=== PATIENT | female | born 1945 | race Caucasian/White ===

== ENCOUNTER 2021-05-31 10:01 | Outpatient (CLI) | payer MEDICARE, MEDICAID, SELFPAY ==
--- NOTE | 2021-05-31 10:23 | XR_ITS ---
WS: [id number] LUMBAR SPINE: 3 VIEWS TECHNIQUE: AP, lateral and L5-S1 spot. HISTORY: DJD COMPARISON: None available. Lumbar vertebra are normally aligned. Mild narrowing of the disc spaces and small endplate hypertrophic osteophytes at all levels. Facet kaden int arthritis is most significant at L5-S1. Pedicles are all identified. SI joints are symmetric bilaterally. No soft tissue abnormalities. Scattered calcifications within the aorta. XR/XR lumbar spine 2-3V* [id number] IMPRESSION: 1. No acute lumbar spine fracture. 2. Mild degenerative disc disease and moderate facet arthritis at L5-S1. 3. Mild atherosclerosis aorta.
--- NOTE | 2021-05-31 10:24 | XR_ITS ---
WS: [id number] CERVICAL SPINE 3 VIEWS HISTORY: Cervicalgia COMPARISON: None available. Mild LEFT curvature cervical spine. Mild straightening of the normal lordosis. No fractures are identified. Disc spaces are slightly narrowed from C3-4 through C6-7. Hypertrophic e ndplate osteophytes from C3 to C7. Soft tissues are normal. XR/XR cervical spine 3V* [id number] IMPRESSION: 1. Mild LEFT curvature cervical spine. No fracture. 2. Multilevel spondylosis most significant from C3-4 to C6-7.
--- NOTE | 2021-05-31 10:27 | XR_ITS ---
WS: [id number] PELVIS AND BILATERAL HIPS TECHNIQUE: AP pelvis and AP and lateral hips. HISTORY: HIP PAIN COMPARISON: None available. Pelvis: Very mild narrowing of the hip joints. There is also mild bilateral narrowing of the SI joint s. No bone destruction. Osteitis pubis. Right hip: Mild narrowing of the RIGHT hip joint. No fracture or dislocation. No loose body or osteon ecrosis. Left hip: Mild narrowing LEFT hip joint. No fracture or dislocation. No loose body. No avascular necr osis. XR/XR hip BI m 5V wo/w pel* [id number] IMPRESSION: 1. Mild bilateral hip joint arthritis. 2. Mild SI joint narrowing.
== END 2021-05-31 10:02 | disposition home or self-care (01) ==
PROVIDERS: PCP Family Medicine; Visit Provider Family Medicine
DX: M13.852 Other specified arthritis, left hip (principal); M13.851 Other specified arthritis, right hip; M47.812 Spondylosis without myelopathy or radiculopathy, cervical region; M47.816 Spondylosis without myelopathy or radiculopathy, lumbar region; I70.0 Atherosclerosis of aorta; M47.817 Spondylosis without myelopathy or radiculopathy, lumbosacral region
CPT/HCPCS: 72040; 72100; 73521; 73523

== ENCOUNTER 2021-09-03 09:03 | Outpatient (CLI) | payer MEDICARE, MEDICAID, SELFPAY ==
--- NOTE | 2021-09-03 09:11 | XRR_ITS ---
PROCEDURE INFORMATION: Exam: XR Chest Exam date and time: 09/03/2021 9:11 AM Age: 76 years old Clinical indication: Cough and other: Fatigue; Patient HX: History--cough, chest congestion, extreme fatigue; Additional info: Pneumonia/asthma w/acute exacerbation TECHNIQUE: Imaging protocol: XR of the chest. Views: 2 views. COMPARISON: CR XR cervical spine 3V* [id number] 05/31/2021 10:36 AM FINDINGS: Lungs: See Pleural spaces finding. Pleural spaces: Small calcified granuloma left costophrenic angle Heart/Mediastinum: Unremarkable. No cardiomegaly. Bones/joints: Old rib fracture on the left involving the 6th and 7th ribs XR/XR chest 2V* [id number] IMPRESSION: No acute cardiopulmonary process. Radiation Dose CTDIVOL = (mGy): DLP = (mGy-cm)
== END 2021-09-03 09:04 | disposition home or self-care (01) ==
LOC: RAD 09:06
PROVIDERS: PCP Family Medicine; Visit Provider Family Medicine
DX: J18.9 Pneumonia, unspecified organism (principal); J45.901 Unspecified asthma with (acute) exacerbation
CPT/HCPCS: 71046

== ENCOUNTER 2022-05-23 08:19 | Outpatient (CLI) | payer MEDICARE, MEDICAID, SELFPAY ==
--- NOTE | 2022-05-23 08:26 | MM_ITS ---
WS: [id number] Exam: [place] [id number] Date/Time of Exam: 05/23/2022 9:07 AM Reason For Exam: SCREENING VIEWS: MLO and CC views both breasts. 3D digital tomosynthesis is also included in this exam. Comparison made with prior exam of 09/05/2016,. Findings: There was no sign of mass, architectural distortion or suspicious calcification in either breast. Fa tty MM/[place] [id number] Impression: BI-RADS: 2-Benign FOLLOW-UP: 1 Year Follow-up This mammogram was also analyzed by the Computer Aided Detection System R2 Imag [employer] Super[employer].
== END 2022-05-23 08:20 | disposition home or self-care (01) ==
LOC: RAD 08:22
PROVIDERS: PCP Family Medicine; Visit Provider Family Medicine
DX: Z12.31 Encounter for screening mammogram for malignant neoplasm of breast (principal)
CPT/HCPCS: 77063; 77067

== ENCOUNTER 2022-06-06 13:41 | Outpatient (CLI) | payer MEDICARE, MEDICAID, SELFPAY ==
--- NOTE | 2022-06-06 13:44 | XR_ITS ---
WS: [id number] SCREENING DEXA SCAN [employer] CLINICAL INFORMATION: ASYMTOMATIC MENOPAUSAL STATE COMPARISON: November 06, 2018 FINDINGS: The L1-L4 bone mineral density measures 0.916 g/cm2. This corresponds to a T score score of -2.2 and Z score of -1.4. Left femoral neck bone mineral density measures 0.837 g/cm2. This corresponds to a T score of -1.4 an d Z score of -0.3. Right femoral neck bone mineral density measures 0.763 g/cm2. This corresponds to a T score -1.9of an d Z score of -0.8. Mean femoral neck bone mineral density measures 0.800 g/cm2. This corresponds to a T score of -1.6 an d Z score of -0.5. XR/XR DEXA axial skeleton* [id number] IMPRESSION: Osteopenia lumbar spine. Osteopenia femoral necks. Patient's FRAX calculated 10 year probability for major osteoporotic fracture i s 27.0 % and osteoporotic hip fracture is 9.1%. Bone mineral density in the lumbar spine has decreased -1.6% since 2019. Bone mineral density in the femoral necks has increased +1.8% since 2019.
== END 2022-06-06 13:42 | disposition home or self-care (01) ==
LOC: RAD 13:42
PROVIDERS: PCP Family Medicine; Visit Provider Family Medicine
DX: Z78.0 Asymptomatic menopausal state (principal); M85.80 Other specified disorders of bone density and structure, unspecified site
CPT/HCPCS: 77080

== ENCOUNTER 2022-10-15 09:19 | Outpatient (CLI) | payer MEDICARE, MEDICAID, SELFPAY ==
--- NOTE | 2022-10-15 09:36 | XR_ITS ---
WS: [id number] LUMBAR SPINE: 3 VIEWS TECHNIQUE: AP, lateral and L5-S1 spot. HISTORY: UNSPECIFIED FALL/OSTEOARTHRITIS COMPARISON: 05/31/2021 Posterior lumbar vertebral bodies are normally aligned. No acute lumbar spine fractures are identifie d. Mild osteophytic ridging along the vertebral endplates and facet joint arthritis. There is mild an terior wedging and loss of height at T12. This does appear new since the prior study. Lumbar pedicles are all identified. Transverse processes are obscured by osteopenia and GI contents. Sclerosis and partial fusion and narrowing of the SI joints. XR/XR lumbar spine 2-3V* [id number] IMPRESSION: 1. No identifiable lumbar spine fracture. 2. Osteopenia. 3. Highly suspicious for mild compression deformity at T12. If pain continues consider CT evaluation.
== END 2022-10-15 09:20 | disposition home or self-care (01) ==
PROVIDERS: PCP Family Medicine; Visit Provider Family Medicine
DX: M19.90 Unspecified osteoarthritis, unspecified site (principal); W19.XXXA Unspecified fall, initial encounter; M85.88 Other specified disorders of bone density and structure, other site
CPT/HCPCS: 72100

== ENCOUNTER 2023-05-29 07:53 | Outpatient (CLI) | payer MEDICARE, MEDICAID, SELFPAY ==
--- NOTE | 2023-05-29 08:22 | MM_ITS ---
WS: [id number] Bilateral screening 3D tomosynthesis digital mammogram, 05/29/2023 Clinical Data: SCREENING Comparison: 05/23/2022, 09/05/2016. Findings: The breast parenchymal pattern shows fibroglandular tissue. No spiculated masses or clustered calcifi cations are seen. There are no secondary signs of carcinoma. MM/[place] [id number] Impression: 1. Negative bilateral mammogram unchanged. 2. Recommend annual screening mammograms. BIRADS: 1-Negative FOLLOW UP: 1 Year Follow-up The CAD truckload checker was used.
== END 2023-05-29 07:54 | disposition home or self-care (01) ==
LOC: RAD 07:54
PROVIDERS: PCP Family Medicine; Visit Provider Family Medicine
DX: Z12.31 Encounter for screening mammogram for malignant neoplasm of breast (principal)
CPT/HCPCS: 77063; 77067

== ENCOUNTER 2024-02-04 13:32 | Outpatient (CLI) | payer MEDICARE, MEDICAID, SELFPAY ==
--- NOTE | 2024-02-04 15:28 | XRR_ITS ---
PROCEDURE INFORMATION: Exam: XR Chest Exam date and time: 02/04/2024 3:31 PM Age: 78 years old Clinical indication: Condition or disease; Lung condition and disease; Pneumonia; Patient HX: HX of cervical cancer TECHNIQUE: Imaging protocol: Radiologic exam of the chest. Views: 2 views. COMPARISON: CR XR chest 2V* [id number] 09/03/2021 9:25 AM FINDINGS: Lungs: Unremarkable. No consolidation. Pleural spaces: Unremarkable. No pleural effusion. No pneumothorax. Heart/Mediastinum: Unremarkable. No cardiomegaly. Bones/joints: Unremarkable. XR/XR chest 2V* [id number] IMPRESSION: No acute findings.
== END 2024-02-04 13:33 | disposition home or self-care (01) ==
PROVIDERS: PCP Family Medicine; Visit Provider Family Medicine
DX: J18.9 Pneumonia, unspecified organism (principal)
CPT/HCPCS: 71046

== ENCOUNTER 2024-07-20 10:24 | Outpatient (CLI) | payer MEDICARE, MEDICAID, SELFPAY ==
--- NOTE | 2024-07-20 10:26 | MM_ITS ---
WS: [id number] BILATERAL 3D TOMOSYNTHESIS DIGITAL SCREENING MAMMOGRAPHY WITH CAD CLINICAL INFORMATION: SCREENING HISTORY: Screening mammogram. No current complaints. COMPARISON: 2022 TECHNIQUE: Bilateral CC and MLO views. FINDINGS: Scattered fibroglandular densities bilaterally. No suspicious focal mass, asymmetry, calcifications, or architectural distortion. No evidence of malignancy. Dystrophic calcification LEFT breast. MM/MM scr tomosynthesis [id number] IMPRESSION: DENSITY: There are scattered areas of fibroglandular density. BI-RADS: 2 - Benign. FOLLOW UP: 1 Year Follow-up Recommend return to annual screening mammography.
== END 2024-07-20 10:25 | disposition home or self-care (01) ==
LOC: RAD 10:25
PROVIDERS: PCP Family Medicine; Visit Provider Family Medicine
DX: Z12.31 Encounter for screening mammogram for malignant neoplasm of breast (principal); R92.1 Mammographic calcification found on diagnostic imaging of breast; R92.323 Mammographic fibroglandular density, bilateral breasts
CPT/HCPCS: 77063; 77067

== ENCOUNTER 2025-01-26 07:03 | Emergency (ER) | payer MEDICARE, MEDICAID, SELFPAY ==
[2025-01-26 07:22] VITALS: BP 134/92; PULSE 79; RESP 18; TEMP 37; O2SAT 97
--- NOTE | 2025-01-26 07:29 | XR_ITS ---
WS: [id number] XR hip RT 2-3V wo/w pel* [id number] REASON FOR EXAM: Pain, no injury FINDINGS: The examination is unchanged compared to 05/31/2021. No fracture or focal bone lesion. Mild to moderate narrowing of the joint space with mild to moderate subchondral sclerosis and osteophytosis of the acetabulum. No significant abnormality of the femoral head. No soft tissue abnormality. XR/XR hip RT 2-3V wo/w pel* [id number] IMPRESSION: Mild to moderate osteoarthritis of the right hip. Stable.
--- NOTE | 2025-01-26 07:55 | W.ED.GENADLT ---
HPI - General Adult General: Chief complaint: General Medical Stated complaint: RT hip inj Time Seen by Provider: 01/26/25 07:26 History of Present Illness: Patient presents to the ER with complaints of right-sided hip and groin pain since yesterday. Patient denies any known trauma. Patient says she does have generalized arthritis and takes occasional hydrocodone for this. She has taken hydrocodone and this has not helped this. She does have a history of osteoporosis. Patient says she is on a medicine at in because spontaneous hip fractures patient said it started yesterday got worse throughout the night. Related Data Home Medications ?Medication ?Instructions ?Recorded ?Confirmed acyclovir 400 mg tablet 400 mg PO TID PRN Cold Sores 01/26/25 01/26/25 alendronate 70 mg tablet See Rx Instructions .Route .COMPLEX 01/26/25 01/26/25 atorvastatin 80 mg tablet 80 mg PO DAILY 01/26/25 01/26/25 diphenhydramine HCl 25 mg capsule 25 mg PO TID PRN Allergy Symptoms 01/26/25 01/26/25 (Benadryl) gabapentin 100 mg capsule See Rx Instructions .Route .COMPLEX 01/26/25 01/26/25 hydrocodone 5 mg-acetaminophen 325 1 tab PO Q4H PRN Pain 01/26/25 01/26/25 mg tablet levothyroxine 25 mcg tablet 25 mcg PO DAILY 01/26/25 01/26/25 ropinirole 0.25 mg tablet 0.25 mg PO TID 01/26/25 01/26/25 tizanidine 4 mg tablet 4 mg PO Q8H 01/26/25 01/26/25 Previous Rx's ?Medication ?Instructions ?Recorded meloxicam 7.5 mg tablet 7.5 mg PO .Twice daily #14 tabs 01/26/25 prednisone 50 mg tablet 50 mg PO DAILY #5 tabs 01/26/25 Allergies Allergy/AdvReac Type Severity Reaction Status Date / Time No Known Allergies Allergy Verified 01/26/25 07:27 Review of Systems General: Reports: 10 or more systems reviewed and unremarkable except in HPI and below Physical Exam Const: COMMON NORMALS: no acute distress, average body habitus, patient oriented x3, no limitations, healthy appearing, alert and well nourished Neck/C-Spine: COMMON NORMALS: no JVD Chest: COMMONS NORMALS: normal inspection of the chest and normal palpation of entire chest wall Resp: COMMON NORMALS: normal respiratory effort, No retractions, No use of accessory muscles and clear to auscultation bilaterally AUSCULTATION: clear to auscultation bilaterally Cardio: COMMON NORMALS: no JVD, regular rate, regular rhythm, S1 normal heart sound present, S2 normal heart sound present, No gallops present (Cardio), No clicks present (Cardio), No murmurs present (Cardio) and No rub (Cardio) RATE: regular rate RHYTHM: regular rhythm HEART SOUNDS: S1 normal heart sound present and S2 normal heart sound present GI: COMMON NORMALS: Normal to inspection, nondistended, normoactive bowel sounds present, Soft to palpation, non-tender, No hepatosplenomegaly present and no masses PALPATION: Yes Soft to palpation and Yes No hepatosplenomegaly present Extremity: NARRATIVE EXTREMITY EXAM: Tender to palpation over right hip area, flexor crease , greater trochanter, Neuro: COMMON NORMALS: patient oriented x3 SENSORIUM/ORIENTATION: Yes alert Course Vital Signs: Vital signs: Vital Signs Temperature 98.6 F 01/26/25 07:22 Pulse Rate 95 01/26/25 09:12 Respiratory Rate 18 01/26/25 07:22 Blood Pressure 135/75 01/26/25 09:12 Pulse Oximetry 98 01/26/25 09:12 [facility] - General Adult Medical Decision Making X-rays Mild to moderate arthritis of the right hip, patient clinically has more bursitis presentation. Patient will be prescribed meloxicam and prednisone. Patient to follow-up with his PCP within next 7 days. Medical Records I reviewed the patient's medical records. Lab Data I reviewed the patient's lab results. Radiology Impressions Hip/Pelvis X-Ray 01/26/25 07:29 IMPRESSION: Mild to moderate osteoarthritis of the right hip. Stable. All radiology interpretation(s) finalized by discharge Discharge Plan Discharge Patient Disposition: Home Clinical Impression: Acute pain of right hip, Bursitis of hip, right Condition: Stable Prescriptions: New meloxicam 7.5 mg tablet 7.5 mg PO .Twice daily Qty: 14 0RF prednisone 50 mg tablet 50 mg PO DAILY Qty: 5 0RF No Action atorvastatin 80 mg tablet 80 mg PO DAILY tizanidine 4 mg tablet 4 mg PO Q8H hydrocodone-acetaminophen 5-325 mg tablet 1 tab PO Q4H PRN (Reason: Pain) alendronate 70 mg tablet See Rx Instructions .ROUTE .COMPLEX Rx Instructions: TAKE 1 TABLET BY MOUTH ONCE A WEEK WITH 6 TO 8 OUNCE/S OF WATER 30 MINUTES BEFORE FIRST FOOD OR BEVERAGE OF THE DAY acyclovir 400 mg tablet 400 mg PO TID PRN (Reason: Cold Sores) levothyroxine 25 mcg tablet 25 mcg PO DAILY ropinirole 0.25 mg tablet 0.25 mg PO TID gabapentin 100 mg capsule See Rx Instructions .ROUTE .COMPLEX Rx Instructions: TAKE 1 CAPSULE BY MOUTH IN THE MORNING AND 2 CAPSULES BY MOUTH IN THE EVENING diphenhydramine HCl [Benadryl] 25 mg Capsule 25 mg PO TID PRN (Reason: Allergy Symptoms) Discharge Orders: Discharge ED (Routine); Ordered 01/26/25 Ordered By: Radhames Long Referrals: Milena Gomez MD [Primary Care Provider] - 1 week Patient Instructions: Pain Management, Hip Bursitis (ED), Hip Pain (ED) Activity Restrictions/Additional Instructions: Thank you for choosing [facility] for your healthcare needs today. Please realize that you were seen in the emergency department and that we are providing you with an emergency medical screening exam and this may not be a complete and all exclusive of all testing and/or medical workup we may need to determine your element or severity of your illness. It is very important that you follow-up as instructed with your primary care provider or specialist for the additional evaluation and to discuss your medical treatment plan. You may return to the emergency department should you have concerns or if your condition changes or worsens in any way. Print Language: Ukrainian Coding Level of Care Code ED Bin Filler for Olivia Wakefield
[2025-01-26] MEDS: dexamethasone 10 mg/mL INJ IM (08:08)
[2025-01-26] MEDS: ketorolac 60 mg/2 mL INJ IM (08:09)
[2025-01-26 09:12] VITALS: BP 135/75; PULSE 95; O2SAT 98
[2025-01-26 10:11] VITALS: BP 144/111; PULSE 98; O2SAT 98
[2025-01-26 10:26] VITALS: BP 144/111; PULSE 71; O2SAT 100
== END 2025-01-26 10:27 | disposition home or self-care (01) ==
PROVIDERS: Emergency Provider Emergency Medicine; PCP Family Medicine
DX: M70.71 Other bursitis of hip, right hip (principal)
CPT/HCPCS: 73502; 96372; 99284; J1100; J1885

== ENCOUNTER 2025-08-02 08:24 | Outpatient (CLI) | payer MEDICARE, MEDICAID, SELFPAY ==
--- NOTE | 2025-08-02 08:28 | MM_ITS ---
WS: [id number] BILATERAL 3D TOMOSYNTHESIS DIGITAL SCREENING MAMMOGRAPHY WITH CAD CLINICAL INFORMATION: SCREENING HISTORY: Screening mammogram. No current complaints. COMPARISON: 2023 TECHNIQUE: Bilateral CC and MLO views. FINDINGS: Scattered fibroglandular densities bilaterally. No suspicious focal mass, asymmetry, calcifications, or architectural distortion. No evidence of malignancy. Dystrophic calcification inferior LEFT breast MM/MM scr BI tomosynthesis [id number] IMPRESSION: DENSITY: There are scattered areas of fibroglandular density. BI-RADS: 2 - Benign. FOLLOW UP: 1 Year Follow-up Recommend return to annual screening mammography.
== END 2025-08-02 08:25 | disposition home or self-care (01) ==
LOC: RAD 08:26
PROVIDERS: PCP Nurse Practitioner Family; Visit Provider Family Medicine
DX: Z12.31 Encounter for screening mammogram for malignant neoplasm of breast (principal); R92.323 Mammographic fibroglandular density, bilateral breasts; R92.1 Mammographic calcification found on diagnostic imaging of breast
CPT/HCPCS: 77063; 77067

== ENCOUNTER 2025-08-07 09:05 | Emergency (ER) | payer MEDICARE, MEDICAID, SELFPAY ==
--- NOTE | 2025-08-07 09:09 | XRR_ITS ---
PROCEDURE INFORMATION: Exam: XR Chest Exam date and time: 08/07/2025 9:10 AM Age: 80 years old Clinical indication: Shortness of breath; Additional info: Dyspnea/cough TECHNIQUE: Imaging protocol: Radiologic exam of the chest. Views: 1 view. COMPARISON: CR XR chest 2V* [id number] 02/04/2024 3:31 PM FINDINGS: Lungs: Somewhat hazy opacity seen involving the peripheral aspect of the right lower lung. This could represent airspace disease/pneumonia. Overlying soft tissue could have a similar appearance. The lungs are otherwise well-expanded and clear. Pleural spaces: Unremarkable. No pleural effusion. No pneumothorax. Heart/Mediastinum: Heart size is normal. There is calcified plaque involving the aorta. Bones/joints: Unremarkable. XR/XR chest 1V portable [id number] IMPRESSION: Infiltrate/pneumonia versus overlying soft tissue involving the right lower lung peripherally.
[2025-08-07 09:12] VITALS: BP 126/99; PULSE 107; RESP 19; TEMP 36.3; O2SAT 96; BMI 32.3
--- NOTE | 2025-08-07 09:15 | ECG_ITS ---
[facility] 2025-[facility]07 Pat Name: Stephany Lyons Department: Room: Gender: Female Immunologist: : 1945 Requested By: Vadim Butcher Order Number: [id number] Betty MD: HUNTER LIMA Measurements Intervals [place] Rate: 105 P: 52 UT: 148 QRS: 12 QRSD: 80 T: 61 QT: 335 QTc: 443 Interpretive Statements SINUS TACHYCARDIA ABNORMAL RHYTHM ECG No previous ECG available for comparison Electronically Signed On 08-07-2025 23:29:54 CDT by HUNTER LIMA [email or web address]
--- NOTE | 2025-08-07 09:15 | W.ED.SOB ---
HPI - SOB/Dyspnea General: Chief Complaint: Shortness of Breath/Dyspnea Stated Complaint: SOB Time Seen by Provider: 08/07/25 09:08 History of Present Illness: HPI Narrative: 80-year-old male presents emergency room complaining of shortness of breath right sided rib pain. She gotten flu vaccine 1 week ago. 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 She has some nausea she had some loose stools and vomiting as well no fever. Denies any hemoptysis. Associated symptoms: Reports chest congestion; Deny abdominal pain, chest pain or fever(s) Related Data Home Medications ?Medication ?Instructions ?Recorded ?Confirmed acyclovir 400 mg tablet 400 mg PO TID PRN Cold Sores 01/26/25 01/26/25 alendronate 70 mg tablet See Rx Instructions .Route .COMPLEX 01/26/25 01/26/25 atorvastatin 80 mg tablet 80 mg PO DAILY 01/26/25 01/26/25 diphenhydramine HCl 25 mg capsule 25 mg PO TID PRN Allergy Symptoms 01/26/25 01/26/25 (Benadryl) gabapentin 100 mg capsule See Rx Instructions .Route .COMPLEX 01/26/25 01/26/25 hydrocodone 5 mg-acetaminophen 325 1 tab PO Q4H PRN Pain 01/26/25 01/26/25 mg tablet levothyroxine 25 mcg tablet 25 mcg PO DAILY 01/26/25 01/26/25 ropinirole 0.25 mg tablet 0.25 mg PO TID 01/26/25 01/26/25 tizanidine 4 mg tablet 4 mg PO Q8H 01/26/25 01/26/25 Previous Rx's ?Medication ?Instructions ?Recorded meloxicam 7.5 mg tablet 7.5 mg PO .Twice daily #14 tabs 01/26/25 prednisone 50 mg tablet 50 mg PO DAILY #5 tabs 01/26/25 hydrocodone 5 mg-acetaminophen 325 1 tab PO Q6H PRN pain #12 tabs 08/07/25 mg tablet levofloxacin 750 mg tablet 750 mg PO DAILY 7 days #7 tabs 08/07/25 ondansetron HCl 4 mg tablet 4 mg PO Q6H PRN nausea and 08/07/25 vomiting #20 tabs Allergies Allergy/AdvReac Type Severity Reaction Status Date / Time No Known Allergies Allergy Verified 01/26/25 07:27 Review of Systems Const: Denies: fever(s) or chills Card: Denies: chest pain Resp: Reports: dyspnea, non-productive cough and chest congestion GI: Denies: abdominal pain : Denies: dysuria, urinary frequency or urinary urgency Musc: Denies: neck pain or back pain Skin/Breast: Denies: rash Physical Exam Const: GENERAL APPEARANCE: cooperative ORIENTATION/CONSCIOUSNESS: Yes awake, Yes oriented to person, Yes oriented to place and Yes oriented to time HENMT: COMMON NORMALS: normocephalic, atraumatic and hearing grossly normal bilaterally HEAD & SCALP: normocephalic and atraumatic Resp: COMMON NORMALS: normal respiratory effort, No retractions and No use of accessory muscles AUSCULTATION: rhonchi Cardio: COMMON NORMALS: regular rate, regular rhythm and No murmurs present (Cardio) RATE: regular rate RHYTHM: regular rhythm GI: COMMON NORMALS: Soft to palpation and No hepatosplenomegaly present AUSCULTATION: Yes normoactive bowel sounds PALPATION: Yes Soft to palpation, No Tenderness to palpation present (GI), No Guarding due to palpation present (GI) and Yes No hepatosplenomegaly present Extremity: COMMON NORMALS: normal to inspection, capillary refill normal, no clubbing, cyanosis or edema, no calf tenderness and no pedal edema Neuro: SENSORIUM/ORIENTATION: Yes oriented to person, Yes oriented to place and Yes oriented to time Skin: COMMON NORMALS: no rashes or lesions noted GENERAL SKIN EXAM: no rashes or lesions noted Course Vital Signs: Vital signs: Vital Signs Temperature 97.4 F L 08/07/25 09:12 Pulse Rate 101 H 08/07/25 11:00 Respiratory Rate 19 H 08/07/25 09:12 Blood Pressure 126/99 08/07/25 09:12 Pulse Oximetry 93 08/07/25 11:00 Oxygen Delivery Me thod Room Air 08/07/25 11:00 MDM - SOB/Dyspnea Medical Decision Making Right lower lobe pneumonia on chest x-ray white count normal. Oxygen sats normal on room air. Patient feels well enough to go home we will discharge home on oral antibiotics give ondansetron to use as needed close give pain medications and follow-up with primary care doctor return for any worsening symptoms. Medical Records I reviewed the patient's medical records. Lab Data I reviewed the patient's lab results. 08/07/25 09:30 08/07/25 09:30 Labs/Radiology: Radiology Impressions Chest X-Ray 08/07/25 09:09 IMPRESSION: Infiltrate/pneumonia versus overlying soft tissue involving the right lower lung peripherally. Laboratory Results WBC 7.48 10^3/uL (3.29-11.43) 08/07/25 09:30 RBC 3.50 10^6/uL (3.85-5.65) L 08/07/25 09:30 Hgb 11.80 g/dL (11.27-16.99) 08/07/25 09:30 Hct 35.4 % (36-47) L 08/07/25 09:30 MCV 101.1 fl (85-98) H 08/07/25 09:30 MCH 33.7 pg (27-33) H 08/07/25 09:30 MCHC 33.3 g/dL (30-55) 08/07/25 09:30 RDW 13.9 % (12.1-15.1) 08/07/25 09:30 Plt Count 289 10^3/cmm (157-399) 08/07/25 09:30 MPV 9.8 fL (7.4-10.4) 08/07/25 09:30 Neut % (Auto) 80.9 % 08/07/25 09:30 Lymph % (Auto) 13.9 % 08/07/25 09:30 [place] % (Auto) 4.4 % 08/07/25 09:30 Eos % (Auto) 0.3 % 08/07/25 09:30 Baso % (Auto) 0.1 % 08/07/25 09:30 Neut # (Auto) 6.05 10^3/uL (1.8-7.7) 08/07/25 09:30 Lymph # (Auto) 1.0 10^3/uL (0.8-4.8) 08/07/25 09:30 [place] # (Auto) 0.3 10^3/uL (0.2-0.9) 08/07/25 09:30 Eos # (Auto) 0.0 10^3/uL (0.0-0.8) 08/07/25 09:30 Baso # (Auto) 0.0 10^3/uL (0.0-0.1) 08/07/25 09: Nucleated RBC % (auto) 0 % 08/07/25 09: Nucleated RBCs # 0.0 /100WBC 08/07/25 09:30 Specimen Type Arterial 08/07/25 09: Sample Site Brachial, right 08/07/25 09: ABG pH 7.46 (7.35-7.45) H 08/07/25 09: ABG pCO2 35.1 mmHg (35-45) 08/07/25 09: ABG pO2 63.3 mmHg (80.0-100.0) L 08/07/25 09: ABG PO2/FiO2 Ratio 301 08/07/25 09: ABG HCO3 24.9 mmol/L (22-26) 08/07/25 09: ABG O2 Saturation 93.3 08/07/25 09: ABG Base Excess 1.3 mmol/L (-2.0-2.0) 08/07/25 09: Barber Test N/a 08/07/25 09: A-a O2 Gradient 5.5 mmHg (5-10) 08/07/25 09: Hematocrit 36.5 % (37-47) L 08/07/25 09: Hgb O2 Saturation 91.7 % (95-100) L 08/07/25 09: Carboxyhemoglobin 0.9 %THgb (0.4-20.1) 08/07/25 09: Methemoglobin 0.8 % (0.4-1.5) 08/07/25 09: Total Hemoglobin 11.9 g/dL (12-16) L 08/07/25 09: Sodium 140.0 mmol/L (131-143) 08/07/25 09: Potassium 4.1 mmol/L (3.5-5.0) 08/07/25 09: Glucose 128.0 mg/dL (70-115) H 08/07/25 09:29 Ionized Calcium 1.2 mmol/L (1.1-1.4) 08/07/25 09: O2 Delivery Device Room air 08/07/25 09: FiO2 21.0 % 08/07/25 09:29 Capacity Planner ID [id number] 08/07/25 09:29 Sodium 138 mmol/L (136-145) 08/07/25 09:30 Potassium 4.1 mmol/L (3.5-5.1) 08/07/25 09:30 Chloride 100 mmol/L (98-107) 08/07/25 09:30 Carbon Dioxide 23 mmol/L (22-29) 08/07/25 09:30 Anion Gap 19.1 (5-19) H 08/07/25 09:30 BUN 11 mg/dL (8-23) 08/07/25 09:30 Creatinine 0.9 mg/dL (0.5-0.9) 08/07/25 09:30 GFR Calculation Not Reportable 08/07/25 09:30 Glucose 131 mg/dL (65-115) H 08/07/25 09:30 Calculated Osmolality 287 mOsm/kg (285-295) 08/07/25 09:30 Calcium 9.3 mg/dL (8.5-10.5) 08/07/25 09:30 Total Bilirubin 0.4 mg/dL (0.15-1.2) 08/07/25 09:30 AST 12 U/L (0-32) 08/07/25 09:30 ALT 11 U/L (0-33) 08/07/25 09:30 Alkaline Phosphatase 124 U/L (35-105) H 08/07/25 09:30 Troponin T Baseline 8 ng/L (0-10) 08/07/25 09:30 Troponin T 120 Minute 8.17 ng/L (0-10) 08/07/25 11:33 Delta Troponin T 0.17 ABS# (0-10) 08/07/25 11:33 Total Protein 8.4 g/dL (6.6-8.7) 08/07/25 09:30 Albumin 4.1 g/dL (3.5-5.2) 08/07/25 09:30 Globulin 4.3 g/dL (1.3-4.6) 08/07/25 09:30 All radiology interpretation(s) finalized by discharge EKG Data EKG 1: I personally reviewed and interpreted this EKG as follows: EKG Interpretation Date: 08/07/25 Interpretation: EKG :15 AM sinus tachycardia with a rate of 105 ID interval 148 QTc 443[address] No acute ST changes. Significant amount of baseline artifact no previous EKGs for comparison EKG 2: I personally reviewed and interpreted this EKG as follows: EKG Interpretation Date: 08/07/25 Interpretation: EKG 08/07/2025 10:15 AM sinus rhythm rate 79 parable 169 QTc [address] changes noted compared to EKG done earlier today sinus tachycardia no longer present. Discharge Plan Discharge Patient Disposition: Home Clinical Impression: Community acquired pneumonia, Pleuritic chest pain Condition: Stable Prescriptions: New hydrocodone-acetaminophen 5-325 mg tablet 1 tab PO Q6H PRN (Reason: pain) Qty: 12 0RF levofloxacin 750 mg tablet 750 mg PO DAILY 7 Days Qty: 7 0RF ondansetron HCl 4 mg tablet 4 mg PO Q6H PRN (Reason: nausea and vomiting) Qty: 20 0RF No Action atorvastatin 80 mg tablet 80 mg PO DAILY tizanidine 4 mg tablet 4 mg PO Q8H hydrocodone-acetaminophen 5-325 mg tablet 1 tab PO Q4H PRN (Reason: Pain) alendronate 70 mg tablet See Rx Instructions .ROUTE .COMPLEX Rx Instructions: TAKE 1 TABLET BY MOUTH ONCE A WEEK WITH 6 TO 8 OUNCE/S OF WATER 30 MINUTES BEFORE FIRST FOOD OR BEVERAGE OF THE DAY acyclovir 400 mg tablet 400 mg PO TID PRN (Reason: Cold Sores) levothyroxine 25 mcg tablet 25 mcg PO DAILY ropinirole 0.25 mg tablet 0.25 mg PO TID gabapentin 100 mg capsule See Rx Instructions .ROUTE .COMPLEX Rx Instructions: TAKE 1 CAPSULE BY MOUTH IN THE MORNING AND 2 CAPSULES BY MOUTH IN THE EVENING diphenhydramine HCl [Benadryl] 25 mg Capsule 25 mg PO TID PRN (Reason: Allergy Symptoms) meloxicam 7.5 mg tablet 7.5 mg PO .Twice daily Qty: 14 0RF prednisone 50 mg tablet 50 mg PO DAILY Qty: 5 0RF Discharge Orders: Discharge ED (Routine); Ordered 08/07/25 Ordered By: Jim Higgins Referrals: Karmen Milan NP [Primary Care Provider, Unknown] Discharge Diet: Usual diet Discharge Activity: Resume usual activity Patient Instructions: Opioid Safety, Pain Management, Patient Portal & Benjamin Instructions Activity Restrictions/Additional Instructions: Thank you for choosing [facility] for your healthcare needs today. It is very important that you follow up as instructed or that you return to the Emergency Department should you have concerns or if your condition changes or worsens in any way. Emergency department visits are focused on emergent conditions, in some cases you may require further evaluation on an outpatient basis. You are seen in the emergency room with right-sided chest pain worse when you took deep breath. Chest x-ray shows right s lower lobe pneumonia. Will start you on oral antibiotic 1 pill daily for 7 days. You are also given hydrocodone to use as needed for the pain in the chest. Return if you have further problems. (Please note that included in your discharge packet is information concerning opioid safety and pain management. This information is given to all patients were discharged from the ER regardless of their discharge diagnosis or the medicines they usually take or are prescribed.) Print Language: Greenlandic Coding Level of Care Code ED Parimutuel Cashier for Olivia Wakefield
[2025-08-07 09:40] LABS: ABG PCO2 35.1 mmHg (35-45); ABG PH Result 7.46 (7.35-7.45); Alveolar-Arterial Oxygen Gradi 5.5 mmHg (5-10); Arterial Blood Gas Hematocrit 36.5 % (37-47); Blood Gas Operator Identificat AMH; Blood Gas Sample Site Brachial, right; Blood Gas Sample Type Arterial; Carboxyhemoglobin 0.9 %THgb (0.4-20.1); Glucose Level-ABG 128.0 mg/dL (70-115); HCO3 ABG 24.9 mmol/L (22-26); Ionized Calcium Level - ABG 1.2 mmol/L (1.1-1.4); Methemoglobin 0.8 % (0.4-1.5); Oxygen Saturation ABG 93.3; PO2 ABG 63.3 mmHg (80.0-100.0); PO2 FiO2 Ratio Arterial Blood 301; Potassium Level - ABG 4.1 mmol/L (3.5-5.0); Sodium Level - ABG 140.0 mmol/L (131-143)
[2025-08-07 09:42] LABS: Hematocrit 35.4 % (36-47); Hemoglobin 11.80 g/dL (11.27-16.99); Mean Corpuscular HGB Conc 33.3 g/dL (30-55); Mean Corpuscular Hemoglobin 33.7 pg (27-33); Mean Corpuscular Volume 101.1 fl (85-98); Nucleated Red Blood Cells % 0 %; Platelet Count 289 10^3/cmm (157-399); Red Blood Count 3.50 10^6/uL (3.85-5.65); White Blood Count 7.48 10^3/uL (3.29-11.43)
[2025-08-07 09:54] LABS: Alanine Aminotransferase 11 U/L (0-33); Albumin Level 4.1 g/dL (3.5-5.2); Alkaline Phosphatase 124 U/L (35-105); Anion Gap 19.1 (5-19); Aspartate Amino Transferase 12 U/L (0-32); Blood Urea Nitrogen 11 mg/dL (8-23); Calcium 9.3 mg/dL (8.5-10.5); Carbon Dioxide 23 mmol/L (22-29); Chloride 100 mmol/L (98-107); Creatinine Clr Calc Pharmacy 56.5621; Globulin 4.3 g/dL (1.3-4.6); Glucose 131 mg/dL (65-115); Osmolality Calculated 287 mOsm/kg (285-295); Potassium 4.1 mmol/L (3.5-5.1); Sodium 138 mmol/L (136-145); Total Protein 8.4 g/dL (6.6-8.7)
--- NOTE | 2025-08-07 10:15 | ECG_ITS ---
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
[2025-08-07 10:33] LABS: Troponin(5th) Baseline 8 ng/L (0-10)
[2025-08-07 11:00] VITALS: PULSE 101; O2SAT 93
[2025-08-07 11:54] LABS: Troponin 5 2HR 8.17 ng/L (0-10); Troponin 5 2HR Delta 0.17 ABS# (0-10)
== END 2025-08-07 11:53 | disposition home or self-care (01) ==
PROVIDERS: Emergency Provider Family Medicine; PCP Nurse Practitioner Family
DX: J18.9 Pneumonia, unspecified organism (principal); R07.81 Pleurodynia
CPT/HCPCS: 36415; 36600; 71045; 80051; 80053; 82330; 82805; 84484; 85025; 93005; 96374; 99285; J1885

== ENCOUNTER 2025-08-13 01:36 | Emergency (ER) | payer MEDICARE, MEDICAID, SELFPAY ==
--- NOTE | 2025-08-13 01:37 | ECG_ITS ---
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 Measurements Intervals [place] Rate: 83 P: 1 [place]: 203 QRS: 42 QRSD: 87 T: 17 QT: 369 QTc: 435 Interpretive Statements SINUS RHYTHM Compared to ECG 08/07/2025 10:15:34 ST (T wave) deviation no longer present Electronically Signed On 08-13-2025 11:57:09 CDT by Brant Castro M.D. [email or web address]
--- NOTE | 2025-08-13 01:38 | XRR_ITS ---
PROCEDURE INFORMATION: Exam: XR Chest Exam date and time: 08/13/2025 1:55 AM Age: 80 years old Clinical indication: Cough and shortness of breath; Cough with SOB TECHNIQUE: Imaging protocol: Radiologic exam of the chest. Views: 1 view. COMPARISON: CR (CHEST, ) 08/07/2025 9:10 AM FINDINGS: Lungs: New irregular opacities in the left lung base laterally. Pleural spaces: Unremarkable. No pleural effusion. No pneumothorax. Heart/Mediastinum: Unremarkable. No cardiomegaly. Bones/joints: Unremarkable. XR/XR chest 1V portable [id number] IMPRESSION: New irregular opacities in the left lung base laterally.
[2025-08-13 02:03] VITALS: BP 101/68; PULSE 87; RESP 20; TEMP 36.8; O2SAT 95
[2025-08-13 02:04] LABS: Hematocrit 31.7 % (36-47); Hemoglobin 10.50 g/dL (11.27-16.99); Mean Corpuscular HGB Conc 33.1 g/dL (30-55); Mean Corpuscular Hemoglobin 33.4 pg (27-33); Mean Corpuscular Volume 101.0 fl (85-98); Nucleated Red Blood Cells % 0 %; Platelet Count 335 10^3/cmm (157-399); Red Blood Count 3.14 10^6/uL (3.85-5.65); White Blood Count 8.45 10^3/uL (3.29-11.43)
[2025-08-13 02:06] VITALS: BP 101/68; PULSE 86; O2SAT 92
--- NOTE | 2025-08-13 02:07 | ED_ITS ---
HPI - SOB/Dyspnea 2 General: Chief Complaint: Shortness of Breath/Dyspnea Stated Complaint: SOB cant breathe Time Seen by Provider: 08/13/25 01:55 Source: patient Mode of arrival: ambulatory Limitations: no limitations History of Present Illness: HPI Narrative: 80-year-old female who states she been h aving cough over the last week. States she was diagnosed with pneumonia last Friday has finished antibiotics states she is continue to have sharp pains in her posterior ribs. States the pain is much worse when she coughs still has a slight dry cough. She denies any shortness of breath states her pain is very sharp in nature rates it a 7 out of 10. Denies any chest pain denies any fevers denies any vomiting Related Data Home Medications ?Medication ?Instructions ?Recorded ?Confirmed acyclovir 400 mg tablet 400 mg PO TID PRN Cold Sores 01/26/25 01/26/25 alendronate 70 mg tablet See Rx Instructions .Route . COMPLEX 01/26/25 01/26/25 atorvastatin 80 mg tablet 80 mg PO DAILY 01/26/2512/21 diphenhydramine HCl 25 mg capsule 25 mg PO TID PRN All ergy Symptoms 01/26/25 01/26/25 (Benadryl) gabapentin 100 mg capsule See Rx Instructions .Route . COMPLEX 01/26/25 01/26/25 hydrocodone 5 mg-acetaminophen 325 1 tab PO Q4H PRN Pa in 01/26/25 01/26/25 mg tablet levothyroxine 25 mcg tablet 25 mcg PO DAILY 01/26/25 0 01/26/25 ropinirole 0.25 mg tablet 0.25 mg PO TID 01/26/2512/21 tizanidine 4 mg tablet 4 mg PO Q8H 01/26/25 5 Previous Rx's ?Medication ?Instructions ?Recorded meloxicam 7.5 mg tablet 7.5 mg PO .Twice daily #14 t abs 01/26/25 prednisone 50 mg tablet 50 mg PO DAILY #5 tabs 01/26 hydrocodone 5 mg-acetaminophen 325 1 tab PO Q6H PRN pa in #12 tabs 08/07/25 mg tablet levofloxacin 750 mg tablet 750 mg PO DAILY 7 days #7 t abs 08/07/25 ondansetron HCl 4 mg tablet 4 mg PO Q6H PRN nausea and 08/07/25 vomiting #20 tabs doxycycline hyclate 100 mg tablet 100 mg PO BID 7 days #14 tabs 08/13/25 oxycodone-acetaminophen 7.5 mg-325 1 tab PO Q8H PRN pa in #14 tabs 08/13/25 mg tablet (Percocet) Allergies Allergy/AdvReac Type Severity Reaction Status Date / Time No Known Allergies Allergy Verified 08/13/25 02:06 Physical Exam 2 Const: COMMON NORMALS: no acute distress, patient oriented x3 and healthy appearing HENMT: COMMON NORMALS: normocephalic and atraumatic HEAD & SCALP: n ormocephalic and atraumatic Neck/C-Spine: COMMON NORMALS: full ROM and supple Chest: COMMONS NORMALS: normal inspection of the chest OTHER: Point tender over posterior ribs reproduces her pain Resp: COMMON NORMALS: normal respiratory effort, No retractions, No use of accessory muscles and clear to auscultation bilaterally AUSCULTATION: clear to auscultation bilaterally Cardio: COMMON NORMALS: regular rate, regular rhythm and No murmurs present (Cardio) RATE: regular rate RHYTHM: regular rhythm GI: COMMON NORMALS: Normal to inspection, nondistended, normoactive bowel sounds present, Soft to palpation, non-tender and no masses PALPATION: Yes Soft to palpation Extremity: COMMON NORMALS: normal to inspection and full ROM Neuro: COMMON NORMALS: patient oriented x3, moves all extremities and no focal motor deficits Psych: COMMON NORMALS: mental status grossly normal, Normal thought process present and cooperative THOUGHT PROCESS: Normal thought process present Skin: COMMON NORMALS: no rashes or lesions noted and no wounds GENERAL SKIN EXAM: no rashes or lesions noted Course 2 Vital Signs: Vital signs: Vital Signs Temperature 98.3 F 08/13/25 02:03 Pulse Rate 72 08/13/25 03:06 Respiratory Rate 18 08/13/25 02:36 Blood Pressure 119/73 08/13/25 03:06 Pulse Oximetry 93 08/13/25 03:06 Oxygen Delivery Me thod Room Air 08/13/25 02:03 MDM - SOB/Dyspnea Medical Decision Making Patient presents here with shortness of breath along with rib pain going on for a week. Differential includes pulm embolisms, pneumothorax, aortic dissection. Patient has no signs of a pulmonary emboli she has no signs of a or dissection does have a slight pneumonia on her left lower lobe on chest x-ray patient's blood work including white count here are normal. EKG shows normal sinus rhythm heart rate [address] or T wave abnormalities QRS 87 QTc 409. Patient has sharp pains when she coughs and with palpation likely pleuritic pain. Will prescribe her Percocet will prescribe her doxycycline as well I did go over her EKG lab work and imaging along with the prescriptions she understands agrees to plan her pain was much improved here after pain meds here. Medical Records I reviewed the patient's medical records. Lab Data I reviewed the patient's lab results. 08/13/25 01:59 08/13/25 01:59 Labs/Radiology: Radiology Impressions Chest X-Ray 08/13/25 01:38 IMPRESSION: New irregular opacities in the left lung base laterally. Laboratory Results WBC 8.45 10^3/uL (3.29-11.43) 08/13/25 01:59 RBC 3.14 10^6/uL (3.85-5.65) L 08/13/25 01:59 Hgb 10.50 g/dL (11.27-16.99) L 08/13/25 01:59 Hct 31.7 % (36-47) L 08/13/25 01:59 MCV 101.0 fl (85-98) H 08/13/25 01:59 MCH 33.4 pg (27-33) H 08/13/25 01:59 MCHC 33.1 g/dL (30-55) 08/13/25 01:59 RDW 13.9 % (12.1-15.1) 08/13/25 01:59 Plt Count 335 10^3/cmm (157-399) 08/13/25 01:59 MPV 9.3 fL (7.4-10.4) 08/13/25 01:59 Neut % (Auto) 74.9 % 08/13/25 01:59 Lymph % (Auto) 15.9 % 08/13/25 01:59 [place] % (Auto) 7.3 % 08/13/25 01:59 Eos % (Auto) 0.7 % 08/13/25 01:59 Baso % (Auto) 0.4 % 08/13/25 01:59 Neut # (Auto) 6.33 10^3/uL (1.8-7.7) 08/13/25 01:59 Lymph # (Auto) 1.3 10^3/uL (0.8-4.8) 08/13/25 01:59 [place] # (Auto) 0.6 10^3/uL (0.2-0.9) 08/13/25 01:59 Eos # (Auto) 0.1 10^3/uL (0.0-0.8) 08/13/25 01:59 Baso # (Auto) 0.0 10^3/uL (0.0-0.1) 08/13/25 01:59 Nucleated RBC % (auto) 0 % 08/13/25 01:59 Nucleated RBCs # 0.0 /100WBC 08/13/25 01:59 Sodium 134 mmol/L (136-145) L 08/13/25 01:59 Potassium 4.1 mmol/L (3.5-5.1) 08/13/25 01:59 Chloride 95 mmol/L (98-107) L 08/13/25 01:59 Carbon Dioxide 23 mmol/L (22-29) 08/13/25 01:59 Anion Gap 20.1 (5-19) H 08/13/25 01:59 BUN 16 mg/dL (8-23) 08/13/25 01:59 Creatinine 1.2 mg/dL (0.5-0.9) H 08/13/25 01:59 GFR Calculation Not Reportable 08/13/25 01:59 Glucose 127 mg/dL (65-115) H 08/13/25 01:59 Calculated Osmolality 281 mOsm/kg (285-295) L 08/13/25 01:59 Calcium 9.6 mg/dL (8.5-10.5) 08/13/25 01:59 Total Bilirubin 0.3 mg/dL (0.15-1.2) 08/13/25 01:59 AST 12 U/L (0-32) 08/13/25 01:59 ALT 11 U/L (0-33) 08/13/25 01:59 Alkaline Phosphatase 112 U/L (35-105) H 08/13/25 01:59 NT-Pro-B Natriuret Pep 173 pg/mL (0-450) 08/13/25 01:59 Total Protein 8.4 g/dL (6.6-8.7) 08/13/25 01:59 Albumin 3.9 g/dL (3.5-5.2) 08/13/25 01:59 Globulin 4.5 g/dL (1.3-4.6) 08/13/25 01:59 Influenza A (PCR) Negative (Negative) 08/13/25 02:01 Influenza Type B (PCR) Negative (Negative) 08/13/25 02:01 RSV (PCR) Negative (Negative) 08/13/25 02:01 SARS-CoV-2 (PCR) Negative (Negative) 08/13/25 02:01 All radiology interpretation(s) finalized by discharge EKG Data EKG 1: I personally reviewed and interpreted this EKG as follows: EKG Interpretation Date: 08/13/25 EKG interpretation time: 02:03 Interpretation: nsr hr [address] or t wave abnormalities qrs 87 qtc 409 Discharge Plan Discharge Patient Disposition: Home Clinical Impression: Pleuritic chest pain, Community acquired pneumonia Condition: Stable Prescriptions: New oxycodone-acetaminophen [Percocet] 7.5-325 mg tablet 1 tab PO Q8H PRN (Reason: pain) Qty: 14 0RF doxycycline hyclate 100 mg tablet 100 mg PO BID 7 Days Qty: 14 0RF No Action atorvastatin 80 mg tablet 80 mg PO DAILY tizanidine 4 mg tablet 4 mg PO Q8H hydrocodone-acetaminophen 5-325 mg tablet 1 tab PO Q4H PRN (Reason: Pain) alendronate 70 mg tablet See Rx Instructions .ROUTE .COMPLEX Rx Instructions: TAKE 1 TABLET BY MOUTH ONCE A WEEK WITH 6 TO 8 OUNCE/S OF WATER 30 MINUTES BEFORE FIRST FOOD OR BEVERAGE OF THE DAY acyclovir 400 mg tablet 400 mg PO TID PRN (Reason: Cold Sores) levothyroxine 25 mcg tablet 25 mcg PO DAILY ropinirole 0.25 mg tablet 0.25 mg PO TID gabapentin 100 mg capsule See Rx Instructions .ROUTE .COMPLEX Rx Instructions: TAKE 1 CAPSULE BY MOUTH IN THE MORNING AND 2 CAPSULES BY MOUTH IN THE EVENING diphenhydramine HCl [Benadryl] 25 mg Capsule 25 mg PO TID PRN (Reason: Allergy Symptoms) meloxicam 7.5 mg tablet 7.5 mg PO .Twice daily Qty: 14 0RF prednisone 50 mg tablet 50 mg PO DAILY Qty: 5 0RF hydrocodone-acetaminophen 5-325 mg tablet 1 tab PO Q6H PRN (Reason: pain) Qty: 12 0RF levofloxacin 750 mg tablet 750 mg PO DAILY 7 Days Qty: 7 0RF ondansetron HCl 4 mg tablet 4 mg PO Q6H PRN (Reason: nausea and vomiting) Qty: 20 0RF Discharge Orders: Discharge ED (Routine); Ordered 08/13/25 Ordered By: Ivory Vanegas Referrals: Campos,Lauren, ENVIRONMENTAL SCIENCE TECHNICIAN [Primary Care Provider, Nurse Practitioner] - 4-7 days Discharge Diet: Advance as tolerated Discharge Activity: Resume usual activity Patient Instructions: Bacterial Pneumonia (ED) Print Language: Puerto Rican Coding Level of Care Code ED [place] Interpretive Specialist for Olivia Wakefield
[2025-08-13 02:13] VITALS: RESP 19; O2SAT 94
[2025-08-13] MEDS: ondansetron 2 mg/ML SDV 2 mL 4 MG IVP (02:13)
[2025-08-13] MEDS: morphine 4 mg/mL SDV 1 mL IVP (02:13)
[2025-08-13 02:36] VITALS: BP 126/81; PULSE 90; RESP 18; O2SAT 92
[2025-08-13 03:04] LABS: Respiratory Syncytial Virus Ce NEGATIVE (Negative); SARS-CoV-2 PCR NEGATIVE (Negative)
[2025-08-13 03:06] VITALS: BP 119/73; PULSE 72; O2SAT 93
[2025-08-13 03:26] LABS: Alanine Aminotransferase 11 U/L (0-33); Albumin Level 3.9 g/dL (3.5-5.2); Alkaline Phosphatase 112 U/L (35-105); Anion Gap 20.1 (5-19); Aspartate Amino Transferase 12 U/L (0-32); Blood Urea Nitrogen 16 mg/dL (8-23); Calcium 9.6 mg/dL (8.5-10.5); Carbon Dioxide 23 mmol/L (22-29); Chloride 95 mmol/L (98-107); Globulin 4.5 g/dL (1.3-4.6); Glucose 127 mg/dL (65-115); NT Pro B Type Natriuretic Pept 173 pg/mL (0-450); Osmolality Calculated 281 mOsm/kg (285-295); Potassium 4.1 mmol/L (3.5-5.1); Sodium 134 mmol/L (136-145); Total Protein 8.4 g/dL (6.6-8.7)
[2025-08-13] MEDS: HYDROmorphone 0.5 MG/0.5 ML INJ IVP (04:05)
[2025-08-13 04:21] VITALS: BP 106/70; PULSE 81; O2SAT 94
== END 2025-08-13 04:25 | disposition home or self-care (01) ==
PROVIDERS: Emergency Provider Emergency Medicine; PCP Nurse Practitioner Family
DX: R07.81 Pleurodynia (principal); J18.9 Pneumonia, unspecified organism; Z11.52 Encounter for screening for COVID-19
CPT/HCPCS: 71045; 80053; 83880; 85025; 87637; 93005; 96374; 96375; 99285; J1171; J1885; J2270; J2405

== ENCOUNTER 2025-09-15 13:24 | Outpatient (CLI) | payer MEDICARE, MEDICAID, SELFPAY ==
--- NOTE | 2025-09-15 13:28 | XR_ITS ---
WS: [email or web address] XR thoracic spine 3V* [id number] REASON FOR EXAM: thoracic back pain FINDINGS: Mild dextroscoliosis of the thoracic spine. Mild dorsal kyphosis. Moderate wedge-shaped compression deformities of T7, T9, and T12. Mild degenerative spondylosis in the mid and lower thoracic spine. XR/XR thoracic spine 3V* [id number] IMPRESSION: Compression deformities of unknown chronicity as above most likely chronic. Mil d degenerative spondylosis.
--- NOTE | 2025-09-15 13:28 | XR_ITS ---
WS: [email or web address] XR lumbar spine 2-3V* [id number] REASON FOR EXAM: thoracic back pain FINDINGS: Mild rotatory levoscoliosis. Mild straightening of the lower lumbar lordosis. Significant compression deformity of the superior endplate of L3 unknown chronicity. Abnormality not present on the previous examination of 10/15/2022. Significant biconcave compression deformity of T12. Compression deformity of T12 was present on the previous 10/15/2022 however the degree of compression is more severe at this time. The remaining lumbar vertebral bodies in comparison to the previous study show mild biconcave compression deformities likely chronic. The intervertebral disc spaces are intact and relatively well preserved for age. No spondylolysis or significant spondylolisthesis. Significant degenerative arthropathy in the facet joints L3-S1. Compression is more significant at this time. XR/XR lumbar spine 2-3V* [id number] IMPRESSION: Thoracic and lumbar compression deformities as above. Significant lumbar facet joint disease.
--- NOTE | 2025-09-15 17:00 | CT_ITS ---
WS: [id number] CT chest wo con [id number] REASON FOR EXAM: chest pain--abnormal cxr in ER IV CONTRAST ADMINISTERED: None. TOTAL EXAM DLP: 372.[address] scans at [facility] use at least one of these dose optimization techniques: automated exposure control; mA and/or kV adjustment per patient size (includes targeted exams where dose is matched to clinical indication); or iterative reconstruction. TECHNIQUE: Multiple axial images were obtained without intravenous contrast enhancement. Coronal and sagittal reconstructions were obtained. COMPARISON EXAMINATION: None FINDINGS: Small old reactive lymph nodes in the mediastinum. Coronary artery calcifications. No hilar adenopathy or hilar mass. Mass like density in the right upper lobe contiguous with the pleura and major fissure posterior laterally. The area of abnormality measures 5.6 x 3.5 x 4.1 cm with slightly irregular margins with groundglass lung opacities in the adjacent lungs. The central portion of the masslike density has a bubbly appearance. In the anterior right lower lobe contiguous with the major fissure and lateral pleura is an additional masslike measuring 2.5 x 1.3 x 1.4 cm. This abnormality does not contain the central bubbly appearance of the larger lesion. In the left lung there is a faint area of groundglass density contiguous with the pleura in the lingula. There is a small wedge-shaped pleural-based soft tissue density in the posterior left lower lobe associated with areas of atelectasis. No other significant pulmonary parenchymal or pleural abnormality. Moderate degenerative spondylosis in the lumbar spine with wedge-shaped compression deformities of T7 T9 and T12. CT/CT chest wo con [id number] IMPRESSION: Bilateral chest abnormalities as above. Based on the radiographic appearance an d configuration of the larger abnormality in the right lung these findings may represent pulmonary infarcts. Possibly they could represent some form of inflam matory pseudotumor. They do not appear to be neoplastic due to their shape. As clinically warranted a follow-up CT scan of the chest with contrast, in 2 to 3 weeks, is recommended.
== END 2025-09-15 13:25 | disposition home or self-care (01) ==
PROVIDERS: PCP Family Medicine; Visit Provider Family Medicine
DX: M54.6 Pain in thoracic spine (principal); G89.29 Other chronic pain; R07.81 Pleurodynia; R91.8 Other nonspecific abnormal finding of lung field; R59.0 Localized enlarged lymph nodes; I25.10 Atherosclerotic heart disease of native coronary artery without angina pectoris; J98.11 Atelectasis; M47.896 Other spondylosis, lumbar region; M48.54XA Collapsed vertebra, not elsewhere classified, thoracic region, initial encounter for fracture
CPT/HCPCS: 71250; 72072; 72100

== ENCOUNTER 2025-09-27 12:28 | Outpatient (CLI) | payer MEDICARE, MEDICAID, SELFPAY ==
--- NOTE | 2025-09-27 13:45 | USCV_ITS ---
Stephany Lyons Age: 80 Gender: F : 1945 Exam Date: 09/27/2025 13:12 Ordering Phys: Margarita Sherman MD Technologist: LUIS ALBERTO [place] [facility] [place] Bilat pain HISTORY: Lower extremity swelling. Lower extremity pain. PROCEDURES: Venous duplex imaging was performed in bilateral lower extremities. The following venous structures were evaluated: common femoral vein, profunda vein, proximal portion of the greater saphenous vein, superficial femoral vein, and the popliteal vein. In addition, the posterior tibial and peroneal trunk were evaluated. Serial compression, augmentation maneuvers, and spectral Doppler flow evaluation were performed. FINDINGS: No evidence of DVT seen in any vessel visualized at this time. CONCLUSIONS No evidence of right lower extremity DVT. No evidence of left lower extremity DVT. Stevenson Jaimes MD (Electronically Signed) Final Date: 27 September 2025 16:49 S
== END 2025-09-27 12:29 | disposition home or self-care (01) ==
LOC: RAD 12:29
PROVIDERS: PCP Family Medicine; Visit Provider Family Medicine
DX: I26.99 Other pulmonary embolism without acute cor pulmonale (principal)
CPT/HCPCS: 93970

== ENCOUNTER 2025-10-21 09:11 | Emergency (ER) | payer MEDICARE, MEDICAID, SELFPAY ==
[2025-10-21] VITALS (9 sets, daily range): BP systolic 120–148; BP diastolic 68–110; PULSE 75–108; RESP 17–24; TEMP 37.1; O2SAT 97–100; BMI 32.3
--- NOTE | 2025-10-21 09:18 | ECG_ITS ---
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
--- NOTE | 2025-10-21 09:18 | XRR_ITS ---
PROCEDURE INFORMATION: Exam: XR Chest Exam date and time: 10/21/2025 9:57 AM Age: 80 years old Clinical indication: Pain; Angina pectoris; Additional info: Cp TECHNIQUE: Imaging protocol: Radiologic exam of the chest. Views: 1 view. COMPARISON: CT chest [facility] [id number] 09/15/2025 1:33 PM FINDINGS: Lungs: No active infiltrate or focal parenchymal abnormality. Pulmonary vascularity is normal. Pleural spaces: No pleural effusion. No pneumothorax. Heart/Mediastinum: Normal cardiomediastinal sillhouette. Bones/joints: Unremarkable. XR/XR chest 1V portable [id number] IMPRESSION: No acute cardiopulmonary abnormality.
[2025-10-21 09:49] LABS: Hematocrit 34.4 % (36-47); Hemoglobin 11.40 g/dL (11.27-16.99); Mean Corpuscular HGB Conc 33.1 g/dL (30-55); Mean Corpuscular Hemoglobin 32.6 pg (27-33); Mean Corpuscular Volume 98.3 fl (85-98); Nucleated Red Blood Cells % 0 %; Platelet Count 386 10^3/cmm (157-399); Red Blood Count 3.50 10^6/uL (3.85-5.65); White Blood Count 3.90 10^3/uL (3.29-11.43)
[2025-10-21 10:05] LABS: INR 1.01 (0.8-1.2); Prothrombin Time 14.00 SECONDS (12.1-14.9)
--- NOTE | 2025-10-21 10:13 | CT_ITS ---
WS: [id number] CT CHEST, ABDOMEN AND PELVIS WITH CONTRAST HISTORY: cp, sob, abd pain TECHNIQUE: Contiguous 5 mm axial imaging performed through the chest, abdomen and pelvis with IV contrast, oral contrast has not been provided. Coronal and sagittal reformats chest. Coronal and sagittal reformats through the abdomen and pelvis. All CT scans at [facility] use at least one of these dose optimization techniques: automated exposure control; mA and/or kV adjustment per patient size (includes targeted exams where dose is matched to clinical indication); or iterative reconstruction. CONTRAST: Omnipaque 350; 100 mL IV. DLP: 999.53 mGy.cm COMPARISON: Chest CT 09/15/[address]: Normal opacification of the main pulmonary artery. Beginning in the distal RIGHT pulmonary artery and extending into the proximal RIGHT upper and lower lobes is acute nonocclusive emboli. There is additional nonocclusive emboli in the proximal LEFT lower lobe pulmonary artery. Normal size heart. No RIGHT heart strain. Hyperinflated lungs. Residual pleural thickening noted in the RIGHT upper lobe. This was an area of prior wedge-shaped opacification which is probably an infarct. Additional subpleural opacification bilaterally in the lower lung rosado. No pneumothorax or effusions. No mediastinal or hilar adenopathy. Mild increase in thoracic kyphosis. Numerous osteoporotic compression fractures in the thoracic spine. Expansile LEFT lateral fifth rib lesion. Additional fracture with healing involving LEFT lateral eighth rib. Abdomen CT: Mild hepatomegaly and hepatic steatosis. Focal fatty sparing along the falciform ligament. Normal portal vein. Normal gallbladder. No pancreatic abnormality. Stable adrenal glands. Mild cortical thinning and atrophy RIGHT kidney. No renal obstruction. Moderate atherosclerosis aorta. Mesenteric arteries are well opacified. No GI tract obstruction or colitis. Prior appendectomy. Mild fecal retention distal colon. No colitis. Filling defect consistent with DVT is noted in the LEFT iliac vein. Pelvic CT: Prior hysterectomy. LEFT adnexal 2.6 cm cyst is probably a follicle associated with the ovary. No fluid or adenopathy in the pelvis. Negative urinary bladder. T12 and L3 compression fractures. No change since 09/15/2025. Comminuted fracture RIGHT inferior pubic rami with partial healing. Expansile bony lesion with fracture involving the RIGHT superior pubic rami measures 2.6 x 2.5 cm. Partially healed fracture. The fracture does extend into the acetabulum. CT/CT chest abdpel w/*[id number] IMPRESSION: 1. Nonocclusive emboli distal RIGHT pulmonary artery extending into the proxim al upper and lower lobe arteries. 2. Additional nonocclusive emboli in the proximal LEFT lower lobe pulmonary ar adilia. 3. No RIGHT heart strain. 4. LEFT common iliac vein DVT. 5. Pleural-based opacifications in the RIGHT upper lobe and bilateral in the l ower lobes are probably areas of prior pulmonary infarcts. Overall improved sin ce 09/15/2025. 6. Mild to paramidline hepatic steatosis. 7. Chronic RIGHT renal atrophy. 8. Prior appendectomy. 9. No GI tract obstruction. 10. Prior hysterectomy. 11. Expansile bony lesion involving the RIGHT superior pubic rami measures 2.6 x 2.5 cm. Pathological fracture extends into the acetabulum. Recommend bone sc an imaging to further evaluate. Possible metastatic bone disease should be excl uded. Bone scan recommended to evaluate for other sites. PET/CT imaging would a lso be of benefit. 12. Comminuted fracture with nonunion inferior RIGHT pubic rami. 13. Expansile LEFT lateral fifth rib lesion. Metastatic site suspected. 14. Numerous osteoporotic compression fractures in the thoracic and lumbar spi ne.
[2025-10-21 10:15] LABS: Alanine Aminotransferase 30 U/L (0-33); Albumin Level 4.1 g/dL (3.5-5.2); Alkaline Phosphatase 109 U/L (35-105); Anion Gap 21.0 (5-19); Aspartate Amino Transferase 22 U/L (0-32); Blood Urea Nitrogen 12 mg/dL (8-23); Calcium 9.7 mg/dL (8.5-10.5); Carbon Dioxide 22 mmol/L (22-29); Chloride 99 mmol/L (98-107); Globulin 3.3 g/dL (1.3-4.6); Glucose 105 mg/dL (65-115); Lipase 13 U/L (13-60); Osmolality Calculated 286 mOsm/kg (285-295); Potassium 4.0 mmol/L (3.5-5.1); Sodium 138 mmol/L (136-145); Total Protein 7.4 g/dL (6.6-8.7); Troponin(5th) Baseline 12 ng/L (0-10)
--- NOTE | 2025-10-21 10:18 | W.ED.BACK ---
HPI - Back Pain/Injury General: Chief Complaint: Back Pain/Injury Stated Complaint: back and chest pain Time Seen by Provider: 10/21/25 09:20 Source: patient Mode of arrival: ambulatory Limitations: no limitations History of Present Illness: Patient is a 89-year-old female with past medical history of pulmonary embolism diagnosed with pleurisy and pneumonia. She has finished rounds of doxycycline and has been taking narcotic pain medication for pain but states it has still persisted. She tells me that her pulmonary emboli was diagnosed through primary care with an outpatient chest CT, and she was started on Eliquis which she is still taking. She tells me the pain at this time primarily to the thoracic back and wraps around both sides of her flanks towards her chest. She is endorsing shortness of breath but stating that this is only when the pain comes on, which comes and sharp waves where she feels like she is being stabbed. She denies any bowel or bladder incontinence, no saddle anesthesia, no back trauma. She has not been coughing. States that she has had multiple prescriptions of [place] and oxycodone, which have not really helped her pain much. She has not been hypoxic, her oxygen is normal at this time. No nausea or vomiting, no lightheadedness or dizziness. MD elicited complaint: back pain and other (Chest pain) Onset (ago): month(s) Timing: intermittent Severity: severe Quality: sharp and stabbing Associated symptoms: Deny abdominal pain, difficulty walking, fecal incontinence, fever(s) or syncope Related Data Home Medications ?Medication ?Instructions ?Recorded ?Confirmed acyclovir 400 mg tablet 400 mg PO TID PRN Cold Sores 01/26/25 10/21/25 alendronate 70 mg tablet See Rx Instructions .Route .COMPLEX 01/26/25 10/21/25 atorvastatin 80 mg tablet 80 mg PO DAILY 01/26/25 10/21/25 diphenhydramine HCl 25 mg capsule 25 mg PO TID PRN Allergy Symptoms 01/26/25 10/21/25 (Benadryl) gabapentin 100 mg capsule See Rx Instructions .Route .COMPLEX 01/26/25 10/21/25 levothyroxine 25 mcg tablet 25 mcg PO DAILY 01/26/25 10/21/25 tizanidine 4 mg tablet 4 mg PO Q8H 01/26/25 10/21/25 ropinirole 0.25 mg tablet 0.25 mg PO .qpm 08/16/25 10/21/25 mecobalamin (vitamin B12) 1,000 1,000 mcg PO Q48H 10/21/25 10/21/25 mcg chewable tablet (B12 Active) Previous Rx's ?Medication ?Instructions ?Recorded hydrocodone 5 mg-acetaminophen 325 1 tab PO Q4H PRN Pain 30 days #120 09/13/25 mg tablet tabs ondansetron HCl 4 mg tablet 4 mg PO Q6H PRN nausea and 09/13/25 vomiting #30 tabs apixaban 5 mg tablet (Eliquis) 5 mg PO BID #60 tabs 09/16/25 hydrocodone 10 mg-acetaminophen 1 tab PO Q4H PRN pain 30 days #120 09/16/25 325 mg tablet tabs oxycodone 15 mg tablet 15 mg PO Q4H PRN pain 30 days #180 10/12/25 tabs Allergies Allergy/AdvReac Type Severity Reaction Status Date / Time No Known Allergies Allergy Verified 09/13/25 13:20 Review of Systems General: Reports: 10 or more systems reviewed and unremarkable except in HPI and below Const: Reports: other (denies trauma); Denies: fever(s), change in weight or night sweats Card: Reports: chest pain; Denies: palpitations, lightheadedness or syncope Resp: Reports: dyspnea; Denies: productive cough GI: Denies: abdominal pain or fecal incontinence : Denies: urinary incontinence Musc: Reports: back pain; Denies: neck pain or extremity pain Skin/Breast: Denies: rash or skin pain Neuro: Denies: headache(s), numbness in extremities, weakness in extremities, sensory changes, lack of coordination, difficulty walking, frequent falls or involuntary movements PFSH ED PFSH: Medical History Compression fracture of body of thoracic vertebra multiple on xrays . Compression fracture of lumbosacral spine multiple on lumbar x-rays 09.20 Pulmonary embolism and infarction dxed 09.15.25 Chronic back pain greater than 3 months duration Mixed hyperlipidemia Hx of compression fracture of spine Recurrent herpetic vandana Generalized osteoarthritis of multiple sites Restless leg syndrome Osteoporosis, senile Hypercholesterolemia Nonintractable generalized idiopathic epilepsy without status epilepticus Adult hypothyroidism Chronic GERD without esophagitis B12 deficiency Macular degeneration (senile) of retina Moderate persistent asthma, unspecified whether complicated Chronic pain syndrome chronic generalized joint arthritis pain Encounter for chronic pain management Pain management contract signed signed 08.16.25 Surgical History Hx of bilateral cataract extraction Hx of appendectomy Hx of tonsillectomy Hx of hysterectomy still has ovaries Family History Father Cancer Pancreatic cancer Mother No problems noted. 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 Physical Exam Const: COMMON NORMALS: no acute distress, patient oriented x3, no limitations, healthy appearing and alert Neck/C-Spine: COMMON NORMALS: full ROM Chest: OTHER: Tender to palpation to lower chest Resp: COMMON NORMALS: normal respiratory effort, No retractions, No use of accessory muscles and clear to auscultation bilaterally AUSCULTATION: clear to auscultation bilaterally Cardio: COMMON NORMALS: regular rate, regular rhythm, S1 normal heart sound present and S2 normal heart sound present RATE: regular rate RHYTHM: regular rhythm HEART SOUNDS: S1 normal heart sound present and S2 normal heart sound present GI: OTHER: Tender to palpation to bilateral upper abdominal quadrant Back/Pelvis: OTHER: Normal visual examination. Tender to palpation of bilateral parathoracic muscles. No signs of deformity. No bruising. Extremity: COMMON NORMALS: normal to inspection and full ROM Neuro: COMMON NORMALS: patient oriented x3, moves all extremities, no focal motor deficits, no sensory deficits noted, deep tendon reflexes 2+ bilaterally and gait normal SENSORIUM/ORIENTATION: Yes alert Skin: COMMON NORMALS: no rashes or lesions noted GENERAL SKIN EXAM: no rashes or lesions noted Course Vital Signs: Vital signs: Vital Signs Temperature 98.8 F 10/21/25 09:22 Pulse Rate 108 H 10/21/25 09:22 Respiratory Rate 17 10/21/25 09:22 Blood Pressure 120/68 10/21/25 09:22 MDM - Back Pain/Injury Medical Decision Making Patient is an 80-year-old female presenting for evaluation of mid back pain radiating around the front of her abdomen. Has been seen here few times recently discharged with antibiotics at 1 point after being diagnosed with community-acquired pneumonia, associated with pleurisy. Today her evaluation consisted of reproducible tenderness to palpation to the parathoracic muscles wrapping around to the ventral abdomen, but clinically she was nontoxic-appearing. She has remained ambulatory, but it has been increasingly difficult to get around that she reports. Blood work is all repeated and essentially unchanged from previous labs. EKG has not demonstrated any concerns for ST elevation or other life-threatening arrhythmias. She did recently have chest CT with her primary care, showing pulmonary emboli and she had been subsequently started on Eliquis. Today a chest x-ray is nondiagnostic but on chest abdomen pelvis CT there is confirmation again of the pulmonary emboli present to the right pulmonary artery extending into proximal upper and lower lobe arteries, nonocclusive. Other additional nonocclusive emboli also noted even in the left common iliac vein. There is no right heart strain most notably in the patient is not hypoxic, currently anticoagulated. It is evident that what is causing the patient's pain is the reported numerous osteoporotic findings, including compression fractures through the thoracic and lumbar spine, expansile bony lesions to the ribs as well as to the right superior pubic rami with associated pathological fracture extending into the hip. Patient again is ambulatory with normal neurovascular exam, there is high concern that this is malignant and that these are metastatic findings and she is strongly urged to follow-up with her PCP to obtain PET scan/bone scan. There were no other intra-abdominal findings and no other emergent indications for hospitalization at this time as pain has been controlled here with IV Dilaudid. She already has prescribed oxycodone for home, and that she has reliable follow-up and will closely follow-up to obtain further testing. She is informed of return precautions of which she verbalizes understanding. Labs 10/21/25 09:37 10/21/25 09:37 Radiology Impressions Chest X-Ray 10/21/25 09:18 IMPRESSION: No acute cardiopulmonary abnormality. Chest/Abdomen/Pelvis CT 10/21/25 10:13 IMPRESSION: 1. Nonocclusive emboli distal RIGHT pulmonary artery extending into the proximal upper and lower lobe arteries. 2. Additional nonocclusive emboli in the proximal LEFT lower lobe pulmonary artery. 3. No RIGHT heart strain. 4. LEFT common iliac vein DVT. 5. Pleural-based opacifications in the RIGHT upper lobe and bilateral in the lower lobes are probably areas of prior pulmonary infarcts. Overall improved since 09/15/2025. 6. Mild to paramidline hepatic steatosis. 7. Chronic RIGHT renal atrophy. 8. Prior appendectomy. 9. No GI tract obstruction. 10. Prior hysterectomy. 11. Expansile bony lesion involving the RIGHT superior pubic rami measures 2.6 x 2.5 cm. Pathological fracture extends into the acetabulum. Recommend bone scan imaging to further evaluate. Possible metastatic bone disease should be excluded. Bone scan recommended to evaluate for other sites. PET/CT imaging would also be of benefit. 12. Comminuted fracture with nonunion inferior RIGHT pubic rami. 13. Expansile LEFT lateral fifth rib lesion. Metastatic site suspected. 14. Numerous osteoporotic compression fractures in the thoracic and lumbar spine. Laboratory Results WBC 3.90 10^3/uL (3.29-11.43) 10/21/25 09:37 RBC 3.50 10^6/uL (3.85-5.65) L 10/21/25 09:37 Hgb 11.40 g/dL (11.27-16.99) 10/21/25 09:37 Hct 34.4 % (36-47) L 10/21/25 09:37 MCV 98.3 fl (85-98) H 10/21/25 09:37 MCH 32.6 pg (27-33) 10/21/25 09:37 MCHC 33.1 g/dL (30-55) 10/21/25 09:37 RDW 15.3 % (12.1-15.1) H 10/21/25 09:37 Plt Count 386 10^3/cmm (157-399) 10/21/25 09:37 MPV 10.0 fL (7.4-10.4) 10/21/25 09:37 Neut % (Auto) 60.4 % 10/21/25 09:37 Lymph % (Auto) 34.4 % 10/21/25 09:37 Faulk % (Auto) 4.1 % 10/21/25 09:37 Eos % (Auto) 0.3 % 10/21/25 09:37 Baso % (Auto) 0.5 % 10/21/25 09:37 Neut # (Auto) 2.36 10^3/uL (1.8-7.7) 10/21/25 09:37 Lymph # (Auto) 1.3 10^3/uL (0.8-4.8) 10/21/25 09:37 Faulk # (Auto) 0.2 10^3/uL (0.2-0.9) 10/21/25 09:37 Eos # (Auto) 0.0 10^3/uL (0.0-0.8) 10/21/25 09:37 Baso # (Auto) 0.0 10^3/uL (0.0-0.1) 10/21/25 09:37 Nucleated RBC % (auto) 0 % 10/21/25 09:37 Nucleated RBCs # 0.0 /100WBC 10/21/25 09:37 PT 14.00 SECONDS (12.1-14.9) 10/21/25 09:37 INR 1.01 (0.8-1.2) 10/21/25 09:37 Sodium 138 mmol/L (136-145) 10/21/25 09:37 Potassium 4.0 mmol/L (3.5-5.1) 10/21/25 09:37 Chloride 99 mmol/L (98-107) 10/21/25 09:37 Carbon Dioxide 22 mmol/L (22-29) 10/21/25 09:37 Anion Gap 21.0 (5-19) H 10/21/25 09:37 BUN 12 mg/dL (8-23) 10/21/25 09:37 Creatinine 1.1 mg/dL (0.5-0.9) H 10/21/25 09:37 GFR Calculation Not Reportable 10/21/25 09:37 Glucose 105 mg/dL (65-115) 10/21/25 09:37 Calculated Osmolality 286 mOsm/kg (285-295) 10/21/25 09:37 Calcium 9.7 mg/dL (8.5-10.5) 10/21/25 09:37 Total Bilirubin 0.4 mg/dL (0.15-1.2) 10/21/25 09:37 AST 22 U/L (0-32) 10/21/25 09:37 ALT 30 U/L (0-33) 10/21/25 09:37 Alkaline Phosphatase 109 U/L (35-105) H 10/21/25 09:37 Troponin T Baseline 12 ng/L (0-10) H 10/21/25 09:37 Troponin T 60 Minute 8.36 ng/L (0-10) 10/21/25 10:27 Delta Troponin T -3.64 ABS# (0-10) L 10/21/25 10:27 Total Protein 7.4 g/dL (6.6-8.7) 10/21/25 09:37 Albumin 4.1 g/dL (3.5-5.2) 10/21/25 09:37 Globulin 3.3 g/dL (1.3-4.6) 10/21/25 09:37 Lipase 13 U/L (13-60) 10/21/25 09:37 All radiology interpretation(s) finalized by discharge Discharge Plan Discharge Patient Disposition: Home Clinical Impression: Expansile bone lesions, Compression fracture Fracture of ramus of right pubis Qualifiers: Encounter type: initial encounter Fracture type: closed Qualified Code(s): S32.591A - Other specified fracture of right pubis, initial encounter for closed fracture Condition: Stable Prescriptions: No Action ondansetron HCl 4 mg tablet 4 mg PO Q6H PRN (Reason: nausea and vomiting) Qty: 30 0RF hydrocodone-acetaminophen 5-325 mg tablet 1 tab PO Q4H PRN (Reason: Pain) 30 Days Qty: 120 0RF Rx Instructions: she needs #120, not 90 ropinirole 0.25 mg tablet 0.25 mg PO .qpm hydrocodone-acetaminophen 10-325 mg tablet 1 tab PO Q4H PRN (Reason: pain) 30 Days Qty: 120 0RF Eliquis 5 mg tablet 5 mg PO BID Qty: 60 5RF oxycodone 15 mg tablet 15 mg PO Q4H PRN (Reason: pain) 30 Days Qty: 180 0RF atorvastatin 80 mg tablet 80 mg PO DAILY tizanidine 4 mg tablet 4 mg PO Q8H alendronate 70 mg tablet See Rx Instructions .ROUTE .COMPLEX Rx Instructions: TAKE 1 TABLET BY MOUTH ONCE A WEEK WITH 6 TO 8 OUNCE/S OF WATER 30 MINUTES BEFORE FIRST FOOD OR BEVERAGE OF THE DAY acyclovir 400 mg tablet 400 mg PO TID PRN (Reason: Cold Sores) levothyroxine 25 mcg tablet 25 mcg PO DAILY gabapentin 100 mg capsule See Rx Instructions .ROUTE .COMPLEX Rx Instructions: TAKE 1 CAPSULE BY MOUTH IN THE MORNING AND 2 CAPSULES BY MOUTH IN THE EVENING diphenhydramine HCl [Benadryl] 25 mg Capsule 25 mg PO TID PRN (Reason: Allergy Symptoms) mecobalamin (vitamin B12) [B12 Active] 1,000 mcg Tablet,Chewable 1,000 mcg PO Q48H Discharge Orders: Discharge ED (Routine); Ordered 10/21/25 Ordered By: Vadim Mckeon Referrals: Margarita Sherman MD [Primary Care Provider, Family Practice] Patient Instructions: Patient Portal & Benjamin Instructions Activity Restrictions/Additional Instructions: Discharge Instructions for Patient with Suspected Metastatic Bone Disease DISCHARGE INSTRUCTIONS Diagnosis: You are being discharged with scattered bone lesions involving your left ribs, multiple compression fractures of your thoracic and lumbar spine, and a fracture of your right pubic bone. These bone lesions are suspected to be metastatic (cancer that has spread to the bones), but we need additional testing to confirm this diagnosis. Medications: - Continue taking your oxycodone as prescribed for pain control - Take this medication with food to reduce stomach upset - Do not drive or operate heavy machinery while taking this medication - Contact your doctor if your pain is not adequately controlled with your current medication Activity Instructions: - You may walk and perform light daily activities as tolerated - Avoid heavy lifting (nothing heavier than 10 pounds) - Avoid bending, twisting, or sudden movements of your spine - Avoid high-impact activities such as running, jumping, or contact sports - Use assistive devices (walker, cane) if needed for stability - When getting in and out of bed, roll to your side first, then use your arms to push yourself up - Avoid prolonged sitting or standing in one position - change positions frequently - Rest when you feel tired or experience increased pain Important Follow-Up: - You must schedule and complete a PET scan or bone scan with your primary care doctor as soon as possible. This imaging is essential to determine the cause of your bone lesions and guide your treatment - Follow up with your primary care doctor within 1-2 weeks of discharge to review test results and discuss next steps - You may need referral to an oncologist (cancer specialist) depending on your test results WARNING SIGNS - Go to the Emergency Department or Call 911 if you experience: - New or worsening weakness in your legs or arms - Numbness or tingling in your legs, feet, groin area, or buttocks (saddle area) - Loss of bladder or bowel control (inability to urinate, urinary incontinence, or loss of bowel control) - Severe, uncontrolled pain that does not improve with your prescribed medication - Inability to walk or stand - Fever over 100.4?F (38?C), especially with chills or sweating - Sudden severe back pain or pain that is significantly worse than before - Falls or new injuries General Care: - Maintain good nutrition with adequate protein and calcium intake - Stay well-hydrated by drinking plenty of water - Prevent constipation (common with opioid pain medications) by increasing fiber intake, drinking fluids, and using stool softeners if needed - Avoid smoking and limit alcohol consumption - Ensure your home is safe: remove tripping hazards, use nightlights, and install grab bars in the bathroom if needed Pain Management: - Apply ice or heat to painful areas as tolerated (20 minutes at a time) - Use pillows for support when sitting or lying down - Take pain medication before pain becomes severe - Keep a pain diary to track what helps and what makes pain worse Questions or Concerns: If you have any questions or concerns before your scheduled follow-up appointment, please contact your primary care doctor's office. Remember: The PET scan or bone scan is critical for determining the cause of your bone lesions and planning appropriate treatment. Please make this a priority. 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
--- NOTE | 2025-10-21 10:29 | ECG_ITS ---
[facility]: 2025[facility]21 Pat Name: Stephany Lyons Department: Room: Gender: Female Intelligence Chief: : 1945 Requested By: Ivory Vanegas Order Number: [id number] Reading MD: HUNTER LIMA Measurements Intervals [place] Rate: 74 P: 5 ND: 158 QRS: 30 QRSD: 79 T: 60 QT: 387 QTc: 432 Interpretive Statements SINUS RHYTHM Compared to ECG 10/21/2025 09:34:22 No significant changes Electronically Signed On 10-23-2025 23:23:32 POINTER HELPER by HUNTER LIMA [email or web address] [id number]
[2025-10-21] MEDS: HYDROmorphone 0.5 MG/0.5 ML INJ 1 MG IVP (11:49)
[2025-10-21] MEDS: iohexol 350 mg/mL 500 mL Btl (per mL) IV (11:55)
[2025-10-21] MEDS: HYDROmorphone 0.5 MG/0.5 ML INJ IVP (13:30)
== END 2025-10-21 13:45 | disposition home or self-care (01) ==
PROVIDERS: Emergency Medicine; Emergency Provider Physician Assistant; PCP Family Medicine
DX: M89.9 Disorder of bone, unspecified (principal); S32.591A Other specified fracture of right pubis, initial encounter for closed fracture; S22.080A Wedge compression fracture of T11-T12 vertebra, initial encounter for closed fracture; S32.030A Wedge compression fracture of third lumbar vertebra, initial encounter for closed fracture; X58.XXXA Exposure to other specified factors, initial encounter; E78.2 Mixed hyperlipidemia; Z87.891 Personal history of nicotine dependence; Z79.01 Long term (current) use of anticoagulants
CPT/HCPCS: 36415; 71045; 71260; 74177; 80053; 83690; 84484; 85025; 85610; 93005; 96374; 96376; 99285; J1171

== ENCOUNTER 2025-10-25 08:01 | Outpatient (CLI) | payer MEDICARE, MEDICAID, SELFPAY ==
--- NOTE | 2025-10-25 08:00 | NM_ITS ---
WS: [id number] NUCLEAR MEDICINE BONE SCAN Radiopharmaceutical: 25.2 Tc-99m MDP mCi IV Injection site: Antecubital Postinjection imaging delay: 1 hr CLINICAL INFORMATION: CT abd/pelvis shows concern of bone mets COMPARISON: CT 10/21/2025 FINDINGS: Bone lesions: Focal uptake in the RIGHT acetabulum and ischium suspicious for metastatic disease corresponding to the CT findings. Uptake is somewhat low- grade. Diffuse nonspecific calvarial uptake. Focal uptake in the RIGHT inferior pubic ramus also corresponds to the CT findings of healing inferior pubic ramus fracture. Multiple areas of uptake in the thoracic spine compatible with compression fractures seen on CT. Soft tissue contours: Normal. Kidneys: Normal. Other findings: Low-grade uptake in the femoral shafts is nonspecific but may be due to metabolic bone disease. Degenerative type uptake in the shoulders and AC joints. Degenerative uptake in both knees. Uptake in several left-sided ribs likely healing rib fractures but nonspecific NM/NM bone scan whole body* [id number] IMPRESSION: 1. Bony uptake in the RIGHT anterior acetabulum and pubic ramus corresponding to the CT findings suspicious for metastatic disease. Uptake is somewhat low-gr reyes. Recommend PET/CT in further evaluation and for better anatomic detail. 2. Nonspecific diffuse patchy calvarial uptake. 3. Low-grade uptake in the femoral shafts nonspecific but may be due to metabo lic bone disease. 4. Bony uptake in multiple thoracic compression fractures also seen on the rec ent CT.
== END 2025-10-25 08:02 | disposition home or self-care (01) ==
LOC: RAD 08:03
PROVIDERS: PCP Family Medicine; Visit Provider Family Medicine
DX: C80.1 Malignant (primary) neoplasm, unspecified (principal); C79.51 Secondary malignant neoplasm of bone
CPT/HCPCS: 78306; A9561